=== PATIENT | male | born 1940 | race Caucasian/White ===

== ENCOUNTER 2016-12-27 07:30 | Inpatient (IN) | payer MEDICARE, OTHER ==
[~2016-12-27] VITALS: Ht 160 cm; Wt 53.6 kg
[~2016-12-27 07:30] MED LIST: ACET-2247 PO; ASCO500 PO; BACITRACIN 50,000 UNITS/VIAL ONE; BUPIVACAINE HCL/PF 0.5% 30 ML VIAL ONE; BUPIVACAINE LIPOSOME/PF 1.3%-13.3MG/ML SUSPENSION 20 ML VIAL INJ ONE; DEXAMETHASONE SOD PHOS 4 MG/ML VIAL IVP ONE; DICL2100G TP; FERR-89 PO; FOLI1 PO; FentaNYL CITRATE-PF 100 MCG/2 ML VIAL IVP ONE; LIDOCAINE HCL/PF 2% 5 ML VIAL IM ONE; MIDAZOLAM HCL 2 MG/2 ML VIAL IVP ONE; ONDANSETRON HCL 4 MG/2 ML VIAL IVP ONE; PANT40TA25 PO; RINGERS SOLUTION,LACTATED 1,000 ML IV ONE; SODIUM CHLORIDE 0.9% 50 ML ONE; SODIUM CL IRRIG SOLN BAG 3,000 ML IRRIG ONE; TRANEXAMIC ACID 1,000 MG in DEXTROSE 5%-WATER 50 ML IV ONE
[2016-12-27] MEDS ORDERED: RINGERS SOLUTION,LACTATED 1,000 ML IV ONE (09:40)
[2016-12-27] MEDS ORDERED: ACETAMINOPHEN 1000 MG/ISO-OSM 100 ML IV ONE (09:45)
[2016-12-27] MEDS ORDERED: CELECOXIB 200 MG CAPSULE PO ONE (09:45)
[2016-12-27] MEDS ORDERED: SODIUM CHLORIDE 0.9% 10 ML ONE (09:58)
[2016-12-27] MEDS: SODIUM CHLORIDE 0.45% 1,000 ML IV SCH (10:07)
[2016-12-27] MEDS ORDERED: MAG HYDROX/AL HYDROX/SIMETH 30 ML SUSP UDCUP PO PRN (10:15)
[2016-12-27] MEDS ORDERED: BISACODYL 10 MG RECTAL RECTAL SUPPOSITORY PR PRN (10:15)
[2016-12-27] MEDS ORDERED: BENZOCAINE/MENTHOL LOZENGE [8 LOZENGES/PACKET] PO PRN (10:15)
[2016-12-27] MEDS ORDERED: OXYGEN THERAPY IH SCH (11:00)
[2016-12-27] MEDS ORDERED: MEPERIDINE-PF 25 MG/ML SYRINGE IVP PRN (11:15)
[2016-12-27] MEDS ORDERED: HYDROmorphone 2 MG/ML SYRINGE IVP PRN ×2 (11:15)
[2016-12-27] MEDS ORDERED: FentaNYL CITRATE-PF 100 MCG/2 ML VIAL IVP PRN (11:15)
[2016-12-27 13:34] VITALS: BP 126/74
[2016-12-27 16:06] VITALS: BP 133/80
[2016-12-27] MEDS: CYCLOBENZAPRINE HCL 10 MG TABLET PO SCH ×2 (16:52→20:35)
[2016-12-27] MEDS: RIVAROXABAN 10 MG TABLET PO SCH (17:30)
[2016-12-27] MEDS: ACETAMINOPHEN 1000 MG/ISO-OSM 100 ML IV SCH (18:02)
[2016-12-27] MEDS: CeFAZolin 1 GM/DEXTROSE 50 ML IV SCH (19:01)
[2016-12-27 20:00] VITALS: BP 125/59
[2016-12-27] MEDS: OXYGEN THERAPY IH SCH (20:00)
[2016-12-27] MEDS: CELECOXIB 100 MG CAPSULE PO SCH (20:35)
[2016-12-27] MEDS: DOCUSATE SODIUM 100 MG CAPSULE PO SCH (20:36)
[2016-12-28] VITALS (15 sets, daily range): BP systolic 100–114; BP diastolic 52–81
[2016-12-28] MEDS: ACETAMINOPHEN 1000 MG/ISO-OSM 100 ML IV SCH ×2 (02:09→10:11)
[2016-12-28] MEDS: CeFAZolin 1 GM/DEXTROSE 50 ML IV SCH (02:44)
[2016-12-28] MEDS: SODIUM CHLORIDE 0.45% 1,000 ML IV SCH (04:35)
[2016-12-28 05:49] LABS: BASOPHILS % (AUTO) 0.2 % (0.0-2.0); EOSINOPHILS % (AUTO) 0 % (1.0-6.0); HEMATOCRIT 24.7 % (41-53); HEMOGLOBIN 7.8 g/dL (13.5-17.5); LYMPHOCYTES # (AUTO) 2.1 K/uL (1.0-4.8); LYMPHOCYTES % (AUTO) 11.1 % (22.0-44.0); MEAN CORPUSCULAR HEMOGLOBIN 28.2 pg (26.0-34.0); MEAN CORPUSCULAR HGB CONC 31.7 G/dL (31.0-37.0); MEAN CORPUSCULAR VOLUME 89 fL (80-100); MONOCYTES # (AUTO) 1.5 K/uL (0.1-1.0); NEUTROPHILS # (AUTO) 15.5 K/uL (1.8-7.7); NEUTROPHILS % (AUTO) 80.7 % (40.0-70.0); PLATELET COUNT (AUTO) 478 K/uL (150-450); RED BLOOD CELL COUNT(AUTO) 2.78 MIL/uL (4.50-5.90); RED CELL DISTRIBUTION WIDTH 16.8 % (11.5-14.5); WHITE BLOOD COUNT (AUTO) 19.2 K/uL (4.5-11.0)
[2016-12-28 06:00] LABS: ANION GAP 5 mmol/L (8-16); CALCIUM, TOTAL 8.3 mg/dL (8.8-10.5); CARBON DIOXIDE 30 mmol/L (22-29); CHLORIDE 103 mmol/L (98-107); CREATININE 0.86 mg/dL (0.60-1.30); GLOMERULAR FILTR. RATE CALC > 60 mL/min (>60); POTASSIUM 4.6 mmol/L (3.5-5.1); SODIUM SERUM 138 mmol/L (136-145); UREA NITROGEN, BLOOD 18 mg/dL (7-18)
[2016-12-28] MEDS: OXYGEN THERAPY IH SCH ×2 (08:00→20:00)
[2016-12-28] MEDS: CELECOXIB 100 MG CAPSULE PO SCH ×2 (08:31→19:54)
[2016-12-28] MEDS: FOLIC ACID 1 MG TABLET PO SCH (08:31)
[2016-12-28] MEDS: DOCUSATE SODIUM 100 MG CAPSULE PO SCH ×2 (08:32→19:54)
[2016-12-28] MEDS: BISACODYL 5 MG EC TABLET PO SCH (08:32)
[2016-12-28] MEDS: CYCLOBENZAPRINE HCL 10 MG TABLET PO SCH ×3 (08:32→19:53)
[2016-12-28] MEDS: RIVAROXABAN 10 MG TABLET PO SCH (17:30)
[2016-12-28] MEDS: OxyCODONE HCL/ACETAMINOPHEN 5-325 MG TABLET PO PRN (22:18)
[2016-12-29] MEDS: SODIUM CHLORIDE 0.45% 1,000 ML IV SCH (03:35)
[2016-12-29 04:19] VITALS: BP 112/60
[2016-12-29 06:01] LABS: BASOPHILS # (AUTO) 0.08 K/uL (0.00-0.20); BASOPHILS % (AUTO) 0.7 % (0.0-2.0); EOSINOPHILS % (AUTO) 1.73 % (1.0-6.0); HEMATOCRIT 27.1 % (41-53); LYMPHOCYTES # (AUTO) 2.5 K/uL (1.0-4.8); LYMPHOCYTES % (AUTO) 21.9 % (22.0-44.0); MEAN CORPUSCULAR HEMOGLOBIN 28.9 pg (26.0-34.0); MEAN CORPUSCULAR HGB CONC 33.1 G/dL (31.0-37.0); MEAN CORPUSCULAR VOLUME 87 fL (80-100); MONOCYTES # (AUTO) 1.3 K/uL (0.1-1.0); MONOCYTES % (AUTO) 11.6 % (2.0-9.0); NEUTROPHILS # (AUTO) 7.3 K/uL (1.8-7.7); NEUTROPHILS % (AUTO) 64.1 % (40.0-70.0); PLATELET COUNT (AUTO) 434 K/uL (150-450); RED CELL DISTRIBUTION WIDTH 16.9 % (11.5-14.5); WHITE BLOOD COUNT (AUTO) 11.4 K/uL (4.5-11.0)
[2016-12-29] MEDS: OxyCODONE HCL/ACETAMINOPHEN 5-325 MG TABLET PO PRN ×3 (07:11→23:21)
[2016-12-29 07:18] VITALS: BP 120/65
[2016-12-29] MEDS: CYCLOBENZAPRINE HCL 10 MG TABLET PO SCH ×3 (07:39→20:40)
[2016-12-29] MEDS: FOLIC ACID 1 MG TABLET PO SCH (07:39)
[2016-12-29] MEDS: CELECOXIB 100 MG CAPSULE PO SCH ×2 (07:39→20:40)
[2016-12-29] MEDS: BISACODYL 5 MG EC TABLET PO SCH (07:39)
[2016-12-29] MEDS: DOCUSATE SODIUM 100 MG CAPSULE PO SCH ×2 (07:39→20:39)
[2016-12-29] MEDS: OXYGEN THERAPY IH SCH ×2 (08:00→20:00)
[2016-12-29 12:02] VITALS: BP 108/69
[2016-12-29 16:01] VITALS: BP 111/62
[2016-12-29] MEDS: RIVAROXABAN 10 MG TABLET PO SCH (17:43)
[2016-12-29 19:34] VITALS: BP 111/65
[2016-12-29 23:22] VITALS: BP 116/59
[2016-12-30 03:16] VITALS: BP 118/47
[2016-12-30] MEDS: OxyCODONE HCL/ACETAMINOPHEN 5-325 MG TABLET PO PRN ×2 (06:45→15:23)
[2016-12-30] MEDS: DOCUSATE SODIUM 100 MG CAPSULE PO SCH (06:48)
[2016-12-30] MEDS: BISACODYL 5 MG EC TABLET PO SCH (06:48)
[2016-12-30 06:56] LABS: BASOPHILS % (AUTO) 0.4 % (0.0-2.0); EOSINOPHILS % (AUTO) 2.1 % (1.0-6.0); HEMATOCRIT 27.5 % (41-53); HEMOGLOBIN 8.8 g/dL (13.5-17.5); LYMPHOCYTES # (AUTO) 2.1 K/uL (1.0-4.8); LYMPHOCYTES % (AUTO) 17.7 % (22.0-44.0); MEAN CORPUSCULAR HEMOGLOBIN 28.2 pg (26.0-34.0); MEAN CORPUSCULAR VOLUME 88 fL (80-100); MONOCYTES # (AUTO) 1.3 K/uL (0.1-1.0); NEUTROPHILS % (AUTO) 68.8 % (40.0-70.0); PLATELET COUNT (AUTO) 447 K/uL (150-450); RED BLOOD CELL COUNT(AUTO) 3.12 MIL/uL (4.50-5.90); RED CELL DISTRIBUTION WIDTH 16.4 % (11.5-14.5); WHITE BLOOD COUNT (AUTO) 11.7 K/uL (4.5-11.0)
[2016-12-30 07:30] VITALS: BP 104/58
[2016-12-30] MEDS: OXYGEN THERAPY IH SCH (08:00)
[2016-12-30] MEDS: FOLIC ACID 1 MG TABLET PO SCH (08:10)
[2016-12-30] MEDS: CYCLOBENZAPRINE HCL 10 MG TABLET PO SCH ×2 (08:10→16:20)
[2016-12-30] MEDS: CELECOXIB 100 MG CAPSULE PO SCH (08:11)
[2016-12-30 11:30] VITALS: BP 107/53
[2016-12-30 13:15] LABS: BASOPHILS % (AUTO) 0.4 % (0.0-2.0); EOSINOPHILS % (AUTO) 1.7 % (1.0-6.0); HEMATOCRIT 29.9 % (41-53); HEMOGLOBIN 9.7 g/dL (13.5-17.5); LYMPHOCYTES # (AUTO) 1.8 K/uL (1.0-4.8); LYMPHOCYTES % (AUTO) 15.8 % (22.0-44.0); MEAN CORPUSCULAR HEMOGLOBIN 28.4 pg (26.0-34.0); MEAN CORPUSCULAR HGB CONC 32.3 G/dL (31.0-37.0); MEAN CORPUSCULAR VOLUME 88 fL (80-100); MONOCYTES # (AUTO) 1.2 K/uL (0.1-1.0); MONOCYTES % (AUTO) 10.5 % (2.0-9.0); NEUTROPHILS # (AUTO) 8.2 K/uL (1.8-7.7); NEUTROPHILS % (AUTO) 71.6 % (40.0-70.0); PLATELET COUNT (AUTO) 512 K/uL (150-450); RED CELL DISTRIBUTION WIDTH 16.2 % (11.5-14.5); WHITE BLOOD COUNT (AUTO) 11.5 K/uL (4.5-11.0)
[2016-12-30 15:30] VITALS: BP 101/53
[2016-12-30] MEDS ORDERED: RIVA10 PO (16:24)
[2016-12-30] MEDS ORDERED: PERCT PO (16:43)
[2016-12-30] MEDS ORDERED: DOCU-174 PO (16:45)
[2016-12-30] MEDS: RIVAROXABAN 10 MG TABLET PO SCH (17:20)
== END 2016-12-30 19:10 | disposition home or self-care (01) | DRG 470 ==
LOC: 4E 09:40
PROVIDERS: ADMIT Orthopaedic Surgery; ATTEND Orthopaedic Surgery
PROC: 0SRD0J9 Replacement of Left Knee Joint with Synthetic Substitute, Cemented, Open Approach (ICD-10-PCS; principal; 2016-12-27 15:00)
PROC: 30233N1 Transfusion of Nonautologous Red Blood Cells into Peripheral Vein, Percutaneous Approach (ICD-10-PCS; 2016-12-28)
DX: M17.12 Unilateral primary osteoarthritis, left knee (principal); D64.9 Anemia, unspecified; Z82.62 Family history of osteoporosis; Z82.61 Family history of arthritis
CPT/HCPCS: 86850; 86900; 86901; 86920; 87081; 88300; 97110; 97116; 97161; 97166; 97530; 97535; C9290; J0131; J0690; J1100; J1170; J2250; J2405; J3010; J3490; J7050; J7060; J7120; P9016

== ENCOUNTER 2017-05-23 06:16 | Inpatient (IN) | payer MEDICARE, OTHER ==
[~2017-05-23] VITALS: Ht 160 cm; Wt 59.1 kg
[~2017-05-23 06:16] MED LIST changes: -ACET-2247 PO; +ACET-784 PO; -ASCO500 PO; -BACITRACIN 50,000 UNITS/VIAL ONE; -BUPIVACAINE HCL/PF 0.5% 30 ML VIAL ONE; -BUPIVACAINE LIPOSOME/PF 1.3%-13.3MG/ML SUSPENSION 20 ML VIAL INJ ONE; -DEXAMETHASONE SOD PHOS 4 MG/ML VIAL IVP ONE; -DICL2100G TP; -FentaNYL CITRATE-PF 100 MCG/2 ML VIAL IVP ONE; -LIDOCAINE HCL/PF 2% 5 ML VIAL IM ONE; -MIDAZOLAM HCL 2 MG/2 ML VIAL IVP ONE; -ONDANSETRON HCL 4 MG/2 ML VIAL IVP ONE; -PANT40TA25 PO; -SODIUM CHLORIDE 0.9% 50 ML ONE; -SODIUM CL IRRIG SOLN BAG 3,000 ML IRRIG ONE; -TRANEXAMIC ACID 1,000 MG in DEXTROSE 5%-WATER 50 ML IV ONE
[2017-05-23] MEDS ORDERED: ACETAMINOPHEN 1000 MG/ISO-OSM 100 ML IV ONE ×2 (06:44→06:45)
[2017-05-23] MEDS ORDERED: SODIUM CL IRRIG SOLN BAG 3,000 ML IRRIG ONE (06:59)
[2017-05-23] MEDS ORDERED: RINGERS SOLUTION,LACTATED 1,000 ML IV ONE (06:59)
[2017-05-23] MEDS ORDERED: BUPIVACAINE LIPOSOME/PF 1.3%-13.3MG/ML SUSPENSION 20 ML VIAL INJ ONE (07:00)
[2017-05-23] MEDS ORDERED: TRANEXAMIC ACID 1,000 MG in DEXTROSE 5%-WATER 50 ML IV ONE (07:00)
[2017-05-23 07:06] LABS: BASOPHILS % (AUTO) 0.6 % (0.0-2.0); EOSINOPHILS % (AUTO) 1.3 % (1.0-6.0); HEMATOCRIT 33.4 % (41-53); HEMOGLOBIN 11.1 g/dL (13.5-17.5); LYMPHOCYTES # (AUTO) 2.2 K/uL (1.0-4.8); LYMPHOCYTES % (AUTO) 20.9 % (22.0-44.0); MEAN CORPUSCULAR HGB CONC 33.1 G/dL (31.0-37.0); MEAN CORPUSCULAR VOLUME 87 fL (80-100); MONOCYTES # (AUTO) 0.9 K/uL (0.1-1.0); MONOCYTES % (AUTO) 8.5 % (2.0-9.0); NEUTROPHILS # (AUTO) 7.1 K/uL (1.8-7.7); NEUTROPHILS % (AUTO) 68.7 % (40.0-70.0); PLATELET COUNT (AUTO) 479 K/uL (150-450); RED BLOOD CELL COUNT(AUTO) 3.83 MIL/uL (4.50-5.90); RED CELL DISTRIBUTION WIDTH 19.4 % (11.5-14.5); WHITE BLOOD COUNT (AUTO) 10.4 K/uL (4.5-11.0)
[2017-05-23 07:08] LABS: PROTHROMBIN TIME 10.7 SEC (9.4-11.6)
[2017-05-23 07:18] LABS: ANION GAP 4 mmol/L (8-16); CALCIUM, TOTAL 9.1 mg/dL (8.8-10.5); CARBON DIOXIDE 33 mmol/L (22-29); CHLORIDE 106 mmol/L (98-107); CREATININE 0.82 mg/dL (0.60-1.30); GLOMERULAR FILTR. RATE CALC > 60 mL/min (>60); POTASSIUM 5.2 mmol/L (3.5-5.1); SODIUM SERUM 143 mmol/L (136-145); UREA NITROGEN, BLOOD 16 mg/dL (7-18)
[2017-05-23 07:28] LABS: ALANINE AMINOTRANSFERASE 18 U/L (12-78); ALBUMIN 3.1 g/dL (3.4-5.0); ASPARTATE AMINOTRANSFERASE 9 U/L (15-37); BILIRUBIN,TOTAL 0.2 mg/dL (0.1-1.0); TOTAL PROTEIN, SERUM 7.6 g/dL (6.4-8.2)
[2017-05-23] MEDS ORDERED: DiphenhydrAMINE HCL 50 MG/ML VIAL IVP PRN (07:30)
[2017-05-23] MEDS ORDERED: BISACODYL 10 MG RECTAL RECTAL SUPPOSITORY PR PRN (07:30)
[2017-05-23] MEDS ORDERED: 0.9% SODIUM CHLORIDE 10 ML SYRINGE IVP PRN (07:30)
[2017-05-23] MEDS ORDERED: ONDANSETRON HCL 4 MG/2 ML VIAL IVP PRN (07:30)
[2017-05-23] MEDS ORDERED: BENZOCAINE/MENTHOL LOZENGE [8 LOZENGES/PACKET] PO PRN (07:30)
[2017-05-23] MEDS ORDERED: MAG HYDROX/AL HYDROX/SIMETH 30 ML SUSP UDCUP PO PRN (07:30)
[2017-05-23] MEDS ORDERED: SODIUM CHLORIDE 0.9% 100 ML ONE (07:53)
[2017-05-23] MEDS: OXYGEN THERAPY IH SCH ×2 (08:00→23:24)
[2017-05-23] MEDS ORDERED: BISACODYL 5 MG EC TABLET PO ONE (08:30)
[2017-05-23 08:42] LABS: RBC MORPHOLOGY COMMENT ABNORMAL RBC MORPH
[2017-05-23] MEDS ORDERED: MEPERIDINE-PF 25 MG/ML SYRINGE IVP PRN (08:45)
[2017-05-23] MEDS ORDERED: HYDROmorphone 2 MG/ML SYRINGE IVP PRN ×2 (08:45→12:30)
[2017-05-23] MEDS ORDERED: FentaNYL CITRATE-PF 100 MCG/2 ML VIAL IVP PRN (08:45)
[2017-05-23] MEDS: SODIUM CHLORIDE 0.9% 1,000 ML IV SCH (11:00)
[2017-05-23 11:07] VITALS: BP 119/61
[2017-05-23] MEDS ORDERED: MIDAZOLAM HCL 2 MG/2 ML VIAL IVP ONE (12:00)
[2017-05-23] MEDS ORDERED: KETAMINE HCL 50 MG/ML 10 ML VIAL IVP ONE (12:00)
[2017-05-23] MEDS ORDERED: FentaNYL CITRATE-PF 100 MCG/2 ML VIAL IVP ONE (12:00)
[2017-05-23 12:25] VITALS: BP 108/57
[2017-05-23] MEDS: CYCLOBENZAPRINE HCL 10 MG TABLET PO SCH ×2 (12:45→20:28)
[2017-05-23] MEDS: DOCUSATE SODIUM 100 MG CAPSULE PO SCH ×2 (12:45→20:28)
[2017-05-23] MEDS: CELECOXIB 100 MG CAPSULE PO SCH ×2 (12:45→20:27)
[2017-05-23] MEDS: CeFAZolin 1 GM/DEXTROSE 50 ML IV SCH ×2 (15:26→23:23)
[2017-05-23] MEDS: HYDROmorphone 2 MG/ML SYRINGE IVP PRN ×3 (15:26→22:34)
[2017-05-23] MEDS: ACETAMINOPHEN 1000 MG/ISO-OSM 100 ML IV SCH (16:24)
[2017-05-23 19:35] VITALS: BP 115/54
[2017-05-23] MEDS ORDERED: OXYGEN THERAPY IH SCH (20:00)
[2017-05-23 23:32] VITALS: BP 129/89
[2017-05-24] MEDS: ACETAMINOPHEN 1000 MG/ISO-OSM 100 ML IV SCH ×2 (00:25→08:34)
[2017-05-24] MEDS ORDERED: EPHEDrine SULFATE 50 MG/ML VIAL IM ONE (01:02)
[2017-05-24] MEDS ORDERED: ONDANSETRON HCL 4 MG/2 ML VIAL IVP ONE (01:02)
[2017-05-24] MEDS ORDERED: LIDOCAINE HCL/PF 2% 5 ML VIAL IM ONE (01:02)
[2017-05-24 03:45] VITALS: BP 114/57
[2017-05-24] MEDS: HYDROmorphone 2 MG/ML SYRINGE IVP PRN ×6 (03:45→21:06)
[2017-05-24] MEDS: SODIUM CHLORIDE 0.9% 1,000 ML IV SCH ×3 (03:45→23:21)
[2017-05-24 05:54] LABS: BASOPHILS # (AUTO) 0.05 K/uL (0.00-0.20); BASOPHILS % (AUTO) 0.3 % (0.0-2.0); EOSINOPHILS # (AUTO) 0.06 K/uL (0.00-0.70); EOSINOPHILS % (AUTO) 0.43 % (1.0-6.0); HEMATOCRIT 26.2 % (41-53); HEMOGLOBIN 8.4 g/dL (13.5-17.5); LYMPHOCYTES # (AUTO) 1.7 K/uL (1.0-4.8); LYMPHOCYTES % (AUTO) 12.1 % (22.0-44.0); MEAN CORPUSCULAR HEMOGLOBIN 28.5 pg (26.0-34.0); MEAN CORPUSCULAR HGB CONC 32.1 G/dL (31.0-37.0); MEAN CORPUSCULAR VOLUME 89 fL (80-100); MONOCYTES # (AUTO) 1.7 K/uL (0.1-1.0); NEUTROPHILS # (AUTO) 10.8 K/uL (1.8-7.7); NEUTROPHILS % (AUTO) 75.1 % (40.0-70.0); PLATELET COUNT (AUTO) 335 K/uL (150-450); RED BLOOD CELL COUNT(AUTO) 2.95 MIL/uL (4.50-5.90); RED CELL DISTRIBUTION WIDTH 19.3 % (11.5-14.5); WHITE BLOOD COUNT (AUTO) 14.3 K/uL (4.5-11.0)
[2017-05-24 06:09] LABS: ANION GAP 4 mmol/L (8-16); CALCIUM, TOTAL 8.4 mg/dL (8.8-10.5); CARBON DIOXIDE 29 mmol/L (22-29); CHLORIDE 103 mmol/L (98-107); CREATININE 0.89 mg/dL (0.60-1.30); GLOMERULAR FILTR. RATE CALC > 60 mL/min (>60); POTASSIUM 4.8 mmol/L (3.5-5.1); SODIUM SERUM 136 mmol/L (136-145); UREA NITROGEN, BLOOD 16 mg/dL (7-18)
[2017-05-24 08:27] LABS: RBC MORPHOLOGY COMMENT ABNORMAL RBC MORPH
[2017-05-24 08:30] VITALS: BP 121/59
[2017-05-24] MEDS: OXYGEN THERAPY IH SCH ×3 (08:33→23:00)
[2017-05-24] MEDS: CYCLOBENZAPRINE HCL 10 MG TABLET PO SCH ×2 (08:34→19:55)
[2017-05-24] MEDS: DOCUSATE SODIUM 100 MG CAPSULE PO SCH ×2 (08:34→19:55)
[2017-05-24] MEDS: CELECOXIB 100 MG CAPSULE PO SCH ×2 (08:34→19:55)
[2017-05-24] MEDS ORDERED: RIVAROXABAN 10 MG TABLET PO SCH ×2 (09:00)
[2017-05-24 11:00] VITALS: BP 147/71
[2017-05-24] MEDS: FOLIC ACID 1 MG TABLET PO SCH (12:35)
[2017-05-24 15:00] VITALS: BP 148/77
[2017-05-24] MEDS: RIVAROXABAN 10 MG TABLET PO SCH (17:41)
[2017-05-24 19:49] VITALS: BP 128/62
[2017-05-24 22:37] VITALS: BP 123/68
[2017-05-25] MEDS: HYDROmorphone 2 MG/ML SYRINGE IVP PRN (00:07)
[2017-05-25] MEDS: OXYGEN THERAPY IH SCH ×2 (00:12→20:00)
[2017-05-25 03:13] VITALS: BP 123/67
[2017-05-25 07:33] LABS: BASOPHILS % (AUTO) 0.2 % (0.0-2.0); EOSINOPHILS % (AUTO) 0.7 % (1.0-6.0); HEMATOCRIT 25.5 % (41-53); HEMOGLOBIN 8.5 g/dL (13.5-17.5); LYMPHOCYTES % (AUTO) 13.6 % (22.0-44.0); MEAN CORPUSCULAR HEMOGLOBIN 29.4 pg (26.0-34.0); MEAN CORPUSCULAR HGB CONC 33.3 G/dL (31.0-37.0); MEAN CORPUSCULAR VOLUME 88 fL (80-100); MONOCYTES # (AUTO) 1.7 K/uL (0.1-1.0); MONOCYTES % (AUTO) 11.4 % (2.0-9.0); NEUTROPHILS % (AUTO) 74.1 % (40.0-70.0); PLATELET COUNT (AUTO) 381 K/uL (150-450); RED BLOOD CELL COUNT(AUTO) 2.89 MIL/uL (4.50-5.90); RED CELL DISTRIBUTION WIDTH 19.7 % (11.5-14.5); WHITE BLOOD COUNT (AUTO) 14.9 K/uL (4.5-11.0)
[2017-05-25 08:00] VITALS: BP 131/71
[2017-05-25] MEDS ORDERED: RIVA10 PO (08:53)
[2017-05-25] MEDS ORDERED: HYDR-309 PO (08:54)
[2017-05-25] MEDS: CELECOXIB 100 MG CAPSULE PO SCH ×2 (08:57→21:07)
[2017-05-25] MEDS: DOCUSATE SODIUM 100 MG CAPSULE PO SCH ×2 (08:57→21:07)
[2017-05-25] MEDS: FOLIC ACID 1 MG TABLET PO SCH (08:57)
[2017-05-25] MEDS ORDERED: HYDROCODONE/ACETAMINOPHEN 5-325 MG TABLET PO PRN (09:00)
[2017-05-25 09:35] LABS: RBC MORPHOLOGY COMMENT ABNORMAL RBC MORPH
[2017-05-25 11:45] VITALS: BP 115/87
[2017-05-25] MEDS: CYCLOBENZAPRINE HCL 10 MG TABLET PO SCH ×2 (13:52→21:08)
[2017-05-25 16:45] VITALS: BP 121/65
[2017-05-25] MEDS: RIVAROXABAN 10 MG TABLET PO SCH (17:36)
[2017-05-25] MEDS: ACETAMINOPHEN 325 MG TABLET PO PRN (17:36)
[2017-05-25 21:29] VITALS: BP 108/58
[2017-05-25] MEDS: FERROUS SULFATE 325 MG EC TABLET PO SCH (23:35)
[2017-05-26] VITALS (15 sets, daily range): BP systolic 98–147; BP diastolic 51–85
[2017-05-26 00:59] LABS: APPEARANCE,URINE CLEAR (CLEAR); GLUCOSE, URINE (UA) NEGATIVE (NEGATIVE); KETONES,URINE NEGATIVE (NEGATIVE); LEUKOCYTE ESTERASE ,URINE NEGATIVE (NEGATIVE); OCCULT BLOOD,URINE TRACE (NEGATIVE); PROTEIN,URINE NEGATIVE (NEGATIVE)
[2017-05-26 01:00] LABS: ADD UA MICROSCOPIC YES
[2017-05-26 01:17] LABS: SQUAMOUS EPITHELIAL CELL,UR Rare /LPF (None Seen); WBC,URINE 0-2 /HPF (0-5)
[2017-05-26 06:06] LABS: BASOPHILS % (AUTO) 0.2 % (0.0-2.0); EOSINOPHILS % (AUTO) 1.9 % (1.0-6.0); HEMOGLOBIN 7.4 g/dL (13.5-17.5); LYMPHOCYTES # (AUTO) 1.6 K/uL (1.0-4.8); LYMPHOCYTES % (AUTO) 14.3 % (22.0-44.0); MEAN CORPUSCULAR HEMOGLOBIN 29.4 pg (26.0-34.0); MEAN CORPUSCULAR HGB CONC 33.4 G/dL (31.0-37.0); MEAN CORPUSCULAR VOLUME 88 fL (80-100); MONOCYTES # (AUTO) 1.2 K/uL (0.1-1.0); MONOCYTES % (AUTO) 11.1 % (2.0-9.0); NEUTROPHILS # (AUTO) 7.9 K/uL (1.8-7.7); NEUTROPHILS % (AUTO) 72.5 % (40.0-70.0); PLATELET COUNT (AUTO) 331 K/uL (150-450); RED CELL DISTRIBUTION WIDTH 19.3 % (11.5-14.5); WHITE BLOOD COUNT (AUTO) 10.9 K/uL (4.5-11.0)
[2017-05-26 06:51] LABS: RBC MORPHOLOGY COMMENT ABNORMAL RBC MORPH
[2017-05-26] MEDS: OXYGEN THERAPY IH SCH ×2 (08:00→20:00)
[2017-05-26] MEDS: DOCUSATE SODIUM 100 MG CAPSULE PO SCH ×2 (08:51→20:34)
[2017-05-26] MEDS: FOLIC ACID 1 MG TABLET PO SCH (08:52)
[2017-05-26] MEDS: FERROUS SULFATE 325 MG EC TABLET PO SCH ×2 (08:52→18:01)
[2017-05-26] MEDS: CYCLOBENZAPRINE HCL 10 MG TABLET PO SCH ×2 (08:52→20:34)
[2017-05-26] MEDS: CELECOXIB 100 MG CAPSULE PO SCH ×2 (08:52→20:35)
[2017-05-26] MEDS: ACETAMINOPHEN 325 MG TABLET PO PRN (16:27)
[2017-05-26] MEDS: RIVAROXABAN 10 MG TABLET PO SCH (17:30)
[2017-05-26] MEDS ORDERED: PNEUMOCOCCAL VACCINE POLYVALENT 0.5 ML VIAL [PPSV23] IM ONE (21:30)
[2017-05-27 04:27] VITALS: BP 114/69
[2017-05-27 05:46] LABS: ANION GAP 6 mmol/L (8-16); CALCIUM, TOTAL 8.5 mg/dL (8.8-10.5); CARBON DIOXIDE 28 mmol/L (22-29); CHLORIDE 105 mmol/L (98-107); CREATININE 0.73 mg/dL (0.60-1.30); GLOMERULAR FILTR. RATE CALC > 60 mL/min (>60); POTASSIUM 4.1 mmol/L (3.5-5.1); SODIUM SERUM 139 mmol/L (136-145); UREA NITROGEN, BLOOD 11 mg/dL (7-18)
[2017-05-27 05:53] LABS: BASOPHILS % (AUTO) 0.4 % (0.0-2.0); EOSINOPHILS % (AUTO) 2.3 % (1.0-6.0); HEMOGLOBIN 9.3 g/dL (13.5-17.5); LYMPHOCYTES # (AUTO) 1.6 K/uL (1.0-4.8); LYMPHOCYTES % (AUTO) 15.6 % (22.0-44.0); MEAN CORPUSCULAR HEMOGLOBIN 29.7 pg (26.0-34.0); MEAN CORPUSCULAR HGB CONC 33.2 G/dL (31.0-37.0); MEAN CORPUSCULAR VOLUME 89 fL (80-100); MONOCYTES # (AUTO) 1.1 K/uL (0.1-1.0); MONOCYTES % (AUTO) 10.3 % (2.0-9.0); NEUTROPHILS # (AUTO) 7.4 K/uL (1.8-7.7); NEUTROPHILS % (AUTO) 71.4 % (40.0-70.0); PLATELET COUNT (AUTO) 368 K/uL (150-450); RED BLOOD CELL COUNT(AUTO) 3.13 MIL/uL (4.50-5.90); WHITE BLOOD COUNT (AUTO) 10.4 K/uL (4.5-11.0)
[2017-05-27 07:41] VITALS: BP 122/61
[2017-05-27] MEDS: OXYGEN THERAPY IH SCH (08:00)
[2017-05-27] MEDS: CELECOXIB 100 MG CAPSULE PO SCH (08:37)
[2017-05-27] MEDS: FERROUS SULFATE 325 MG EC TABLET PO SCH (08:37)
[2017-05-27] MEDS: CYCLOBENZAPRINE HCL 10 MG TABLET PO SCH (08:37)
[2017-05-27] MEDS: DOCUSATE SODIUM 100 MG CAPSULE PO SCH (08:37)
[2017-05-27] MEDS: FOLIC ACID 1 MG TABLET PO SCH (08:37)
[2017-05-27] MEDS: ACETAMINOPHEN 325 MG TABLET PO PRN (10:11)
[2017-05-27 10:50] VITALS: BP 141/72
== END 2017-05-27 11:15 | DRG 470 ==
LOC: 4E 06:16
PROVIDERS: ADMIT Orthopaedic Surgery; ATTEND Orthopaedic Surgery
PROC: 0SRC0J9 Replacement of Right Knee Joint with Synthetic Substitute, Cemented, Open Approach (ICD-10-PCS; principal; 2017-05-23 07:30)
PROC: 30233N1 Transfusion of Nonautologous Red Blood Cells into Peripheral Vein, Percutaneous Approach (ICD-10-PCS; 2017-05-26)
DX: M17.11 Unilateral primary osteoarthritis, right knee (principal); M06.9 Rheumatoid arthritis, unspecified; D62 Acute posthemorrhagic anemia; Z96.652 Presence of left artificial knee joint
CPT/HCPCS: 86850; 86900; 86901; 86920; 87040; 87081; 88300; 93005; 94760; 94761; 97110; 97116; 97162; 97166; 97530; 97535; C9290; J0131; J0690; J1170; J2250; J2405; J3010; J3490; J7030; J7050; J7060; J7120; P9016

== ENCOUNTER 2023-06-05 15:34 | Emergency (ER) | payer MEDICARE, OTHER ==
[~2023-06-05] VITALS: Ht 162.6 cm; Wt 59.1 kg
[~2023-06-05 15:34] MED LIST changes: -FERR-89 PO; +FERR325T27 PO; +FOLI-130 PO; -FOLI1 PO; +HYDR-309 PO; -RINGERS SOLUTION,LACTATED 1,000 ML IV ONE
[2023-06-05 15:42] VITALS: BP_DIAS 59; TEMP 98
[2023-06-05 17:28] LABS: APPEARANCE,URINE CLEAR (CLEAR); BILIRUBIN,URINE NEGATIVE (NEGATIVE); GLUCOSE, URINE (UA) NEGATIVE (NEGATIVE); KETONES,URINE NEGATIVE (NEGATIVE); LEUKOCYTE ESTERASE ,URINE TRACE (NEGATIVE); OCCULT BLOOD,URINE NEGATIVE (NEGATIVE); PROTEIN,URINE NEGATIVE (NEGATIVE); SPECIFIC GRAVITIY, URINE 1.019 (1.003-1.030); UROBILINOGEN,URINE <=1.0 mg/dL (<=1.0)
[2023-06-05 17:54] LABS: NITRATE,URINE POSITIVE (NEGATIVE)
[2023-06-05 17:55] LABS: BACTERIA,URINE Many /HPF (None Seen); RBC,URINE None Seen /HPF (0-2)
[2023-06-05] MEDS ORDERED: CEPH-558 PO (20:36)
[2023-06-05 20:54] VITALS: BP_SYST 122; PULSE 86; RESP 18
== END 2023-06-05 20:54 | disposition home or self-care (01) ==
LOC: EMS 16:18
DX: N39.0 Urinary tract infection, site not specified (principal)
CPT/HCPCS: 81001; 87086; 87186; 99283